=== PATIENT | male | born 1945 | race Caucasian/White ===

== ENCOUNTER 2016-09-05 14:28 | Emergency (ER) | payer MEDICARE, MEDICAID ==
[~2016-09-05] VITALS: Ht 154.9 cm; Wt 64.0 kg
[2016-09-05 14:39] VITALS: BP 134/85
[2016-09-05 16:08] LABS: BLOOD UREA NITROGEN 17 mg/dL (7-18); C-REACTIVE PROTEIN, QUANT 0.29 mg/dL (0.02-0.49)
[2016-09-06 11:52] LABS: RAPID PLASMA REAGIN Nonreactive (Nonreactive)
[2016-09-06 13:05] LABS: ANA SCREEN NEGATIVE (Negative)
== END 2016-09-05 16:47 | disposition home or self-care (01) ==
LOC: ED 16:30
DX: R21 Rash and other nonspecific skin eruption (principal); E11.9 Type 2 diabetes mellitus without complications; Z88.1 Allergy status to other antibiotic agents
CPT/HCPCS: 36415; 80048; 82040; 85025; 85651; 86038; 86140; 86592; 99284; J7512

== ENCOUNTER 2016-09-30 02:21 | Emergency (ER) | payer MEDICARE, MEDICAID ==
[~2016-09-30] VITALS: Ht 157.5 cm; Wt 63.3 kg
[2016-09-30 02:59] VITALS: BP 141/86
== END 2016-09-30 03:00 | disposition home or self-care (01) ==
LOC: ED 02:54
DX: L23.5 Allergic contact dermatitis due to other chemical products (principal); E11.9 Type 2 diabetes mellitus without complications
CPT/HCPCS: 99283